=== PATIENT | female | born 1960 | race Caucasian/White ===

== ENCOUNTER 2018-07-22 10:22 | Emergency (ER) | payer BC ==
[~2018-07-22] VITALS: Ht 170.2 cm; Wt 88.0 kg
[2018-07-22 10:25] VITALS: BP 147/83
[2018-07-22] MEDS ORDERED: HYDROcodone/acetaminophen 10/325mg tab PO ONE (11:10)
[2018-07-22] MEDS ORDERED: HYDR-4353 PO (11:22)
[2018-07-22] MEDS ORDERED: NAPR-56 PO (11:22)
== END 2018-07-22 11:31 | disposition home or self-care (01) ==
LOC: ER 10:23
DX: S82.434A Nondisplaced oblique fracture of shaft of right fibula, initial encounter for closed fracture (principal); X50.1XXA Overexertion from prolonged static or awkward postures, initial encounter; Y93.89 Activity, other specified; Y92.89 Other specified places as the place of occurrence of the external cause; Y99.8 Other external cause status
CPT/HCPCS: 73610; 99284

== ENCOUNTER 2018-07-27 09:04 | Outpatient (CLI) | payer BC ==
[2018-07-27 09:00] VITALS: BP 140/88
[~2018-07-27 09:04] MED LIST: HYDR-4353 PO; NAPR-56 PO
== END 2018-07-27 10:16 | disposition home or self-care (01) ==
LOC: ORTHO 09:04
PROVIDERS: ATTEND Nurse Practitioner Family
DX: S82.434A Nondisplaced oblique fracture of shaft of right fibula, initial encounter for closed fracture (principal); X50.1XXA Overexertion from prolonged static or awkward postures, initial encounter; Y93.89 Activity, other specified; Y92.89 Other specified places as the place of occurrence of the external cause; Y99.8 Other external cause status
CPT/HCPCS: 73610; 99213; A4590

== ENCOUNTER 2018-08-14 10:01 | Outpatient (CLI) | payer BC ==
[2018-08-14 09:45] VITALS: BP 132/73
== END 2018-08-14 10:55 | disposition home or self-care (01) ==
LOC: ORTHO 10:01
PROVIDERS: ATTEND Nurse Practitioner Family
DX: S82.431D Displaced oblique fracture of shaft of right fibula, subsequent encounter for closed fracture with routine healing (principal); Z72.89 Other problems related to lifestyle; X58.XXXD Exposure to other specified factors, subsequent encounter
CPT/HCPCS: 73610; 99213; A4590

== ENCOUNTER 2018-08-30 13:25 | Outpatient (CLI) | payer BC ==
[2018-08-30 13:26] VITALS: BP 131/79
== END 2018-08-30 14:06 | disposition home or self-care (01) ==
LOC: ORTHO 13:25
PROVIDERS: ATTEND Nurse Practitioner Family
DX: S82.434D Nondisplaced oblique fracture of shaft of right fibula, subsequent encounter for closed fracture with routine healing (principal); X50.1XXD Overexertion from prolonged static or awkward postures, subsequent encounter
CPT/HCPCS: 73610; 99213

== ENCOUNTER 2018-09-27 11:54 | Outpatient (CLI) | payer BC ==
[2018-09-27 12:15] VITALS: BP 141/76
[2018-09-27 16:18] VITALS: BP 141/76
== END 2018-09-27 13:30 | disposition home or self-care (01) ==
LOC: ORTHO 11:54
PROVIDERS: ATTEND Orthopaedic Surgery
DX: S82.831D Other fracture of upper and lower end of right fibula, subsequent encounter for closed fracture with routine healing (principal); X58.XXXD Exposure to other specified factors, subsequent encounter
CPT/HCPCS: 73610; 99212